=== PATIENT | female | born 1955 ===

== ENCOUNTER 2021-07-13 14:11 | Inpatient (IN) | payer MEDICARE, OTHER ==
[~2021-07-13] VITALS: Ht 167.6 cm; Wt 94.0 kg
[2021-07-13] MEDS ORDERED: SODIUM CHLORIDE 0.9% 1,000 ML IV ONE (14:30)
[2021-07-13] MEDS ORDERED: ZINC SULFATE 220mg CAP or TAB PO ONE (16:00)
[2021-07-13] MEDS ORDERED: methylPREDNISolone SOD SUCC 125 MG/2 ML VL IV ONE (16:00)
[2021-07-13] MEDS ORDERED: AZITHROMYCIN 500MG/ 250ML 250 ML IV ONE (16:00)
[2021-07-13 18:56] LABS: Basophils # (auto) 0 10 ^3/uL (0-0.2); Basophils % (auto) 0.2 % (0.0-2.0); Eosinophils # (auto) 0 10 ^3/uL (0-0.8); Hematocrit 45.2 % (36.0-46.0); Hemoglobin 14.6 g/dL (12.2-16.2); Lymphocytes # (auto) 1.2 10 ^3/uL (0.4-5.4); Lymphocytes % (auto) 5.7 % (10.0-50.0); Mean Corpuscular Hgb Conc. 32.3 g/dL (32.0-36.0); Mean Corpuscular Volume 89.8 fL (80.0-100.0); Monocytes # (auto) 2.5 10 ^3/uL (0-1.3); Monocytes % (auto) 11.5 % (0.0-12.0); Neutrophils # (auto) 18.2 10 ^3/uL (1.6-8.6); Neutrophils % (auto) 82.6 % (37.0-80.0); Nucleated Red Blood Cells % 0.3 %; Red Blood Cells 5.03 10^6/uL (4.0-5.20); Red Cell Distribution Width 14.9 % (11.8-14.3)
[2021-07-13 19:15] LABS: Albumin 2.3 g/dL (3.4-5.0); Anion Gap 11 (5-15); Calcium 10.8 mg/dL (8.5-10.1); Carbon Dioxide 22 mmol/L (21-32); Chloride 111 mmol/L (98-107); Glucose 144 mg/dL (74-106); Potassium 4.3 mmol/L (3.5-5.1); Sodium 144 mmol/L (136-145)
[2021-07-13 19:18] LABS: Lactic Acid w/Reflex 3.8 mmol/L (0.4-2.0)
[2021-07-13 19:23] LABS: Alanine Aminotransferase 16 U/L (13-56); Alkaline Phosphatase 91 U/L (45-117); Aspartate Aminotransferase 23 U/L (15-37); Bilirubin, Total 0.9 mg/dL (0.2-1.0); GFR African American 26 mL/min; GFR Non-African American 22 mL/min; Total Protein 8.2 g/dL (6.4-8.2)
[2021-07-13 19:43] LABS: CRP High Sensitivity > 19.0 mg/dL (< 0.3)
[2021-07-13 19:44] LABS: Blood Urea Nitrogen 120 mg/dL (7-18)
[2021-07-13] MEDS ORDERED: cefTRIAXone 1GM/50ML D5W 50 ML IV ONE (21:00)
[2021-07-13] MEDS ORDERED: MORPHINE SULFATE INJECTION 2 MG/ML SYRG IV PRN (21:00)
[2021-07-13] MEDS ORDERED: NITROGLYCERIN 0.4 MG SL TAB SL PRN (21:00)
[2021-07-13] MEDS ORDERED: ACETAMINOPHEN 325 MG TAB PO PRN (21:00)
[2021-07-13] MEDS ORDERED: ENOXAPARIN SOD 100 MG/1 ML SYRINGE SC ONE (21:00)
[2021-07-13] MEDS ORDERED: ONDANSETRON HCL 4 MG/2 ML VIAL IV PRN (21:00)
[2021-07-14 01:53] LABS: Urine Bacteria NONE SEEN /hpf (None Seen); Urine Blood Negative /uL (Negative); Urine Hyaline Cast MANY /lpf (0 - 2); Urine Mucus FEW (None Seen); Urine Specific Gravity 1.023 (1.001-1.035); Urine WBC 4 /hpf (0 - 5)
[2021-07-14] MEDS: ASCORBIC ACID 500 MG TAB PO SCH ×3 (02:06→21:47)
[2021-07-14] MEDS: levETIRAcetam 500 MG TAB PO SCH ×3 (02:07→21:47)
[2021-07-14] MEDS: SODIUM CHLORIDE 0.9% 1,000 ML IV SCH ×2 (02:20→10:20)
[2021-07-14 06:45] VITALS: BP 129/73
[2021-07-14] MEDS ORDERED: LEVE500T32 PO (07:20)
[2021-07-14] MEDS ORDERED: ASPirin 81 mg TAB PO SCH (10:00)
[2021-07-14] MEDS: cefTRIAXone 1GM/50ML D5W 50 ML IV SCH (10:35)
[2021-07-14] MEDS: ZINC SULFATE 220mg CAP or TAB PO SCH (10:35)
[2021-07-14] MEDS: ENOXAPARIN SOD 30 MG/0.3 ML SYRINGE SC SCH (10:36)
[2021-07-14] MEDS: MULTIPLE VITAMIN TAB PO SCH (10:36)
[2021-07-14 11:22] VITALS: BP 144/85
[2021-07-14] MEDS: AZITHROMYCIN 500MG/ 250ML 250 ML IV SCH (11:30)
[2021-07-14 12:18] LABS: Basophils # (auto) 0.1 10 ^3/uL (0-0.2); Basophils % (auto) 0.4 % (0.0-2.0); Eosinophils # (auto) 0 10 ^3/uL (0-0.8); Eosinophils % (auto) 0.1 % (0.0-7.0); Hematocrit 40.5 % (36.0-46.0); Hemoglobin 13.2 g/dL (12.2-16.2); Lymphocytes # (auto) 0.7 10 ^3/uL (0.4-5.4); Lymphocytes % (auto) 4.4 % (10.0-50.0); Mean Corpuscular Hgb Conc. 32.6 g/dL (32.0-36.0); Mean Corpuscular Volume 88.8 fL (80.0-100.0); Monocytes # (auto) 0.6 10 ^3/uL (0-1.3); Monocytes % (auto) 3.7 % (0.0-12.0); Neutrophils # (auto) 15.2 10 ^3/uL (1.6-8.6); Neutrophils % (auto) 91.4 % (37.0-80.0); Nucleated Red Blood Cells % 0.2 %; Red Blood Cells 4.56 10^6/uL (4.0-5.20); Red Cell Distribution Width 14.9 % (11.8-14.3); White Blood Cell 16.6 10^3/uL (4.4-10.8)
[2021-07-14 12:32] LABS: Albumin 2.1 g/dL (3.4-5.0); Calcium 10.3 mg/dL (8.5-10.1); Potassium 4.6 mmol/L (3.5-5.1)
[2021-07-14 12:45] LABS: BUN/Creatinine Ratio 54.5; Bilirubin, Total 0.9 mg/dL (0.2-1.0); Total Protein 7.4 g/dL (6.4-8.2)
[2021-07-14 14:00] VITALS: BP 118/81
[2021-07-14] MEDS ORDERED: REMDESIVIR PER PHARMACY 0 ML IV SCH (14:00)
[2021-07-14] MEDS ORDERED: IVERMECTIN 3 MG TAB PO ONE (15:00)
[2021-07-14] MEDS ORDERED: CHOLECALCIFEROL (VITD3) 2,000 UNIT CAP/TAB PO ONE (15:15)
[2021-07-14 17:00] VITALS: BP 140/93
[2021-07-14] MEDS ORDERED: REMDESIVIR 100mg 100 MG in SODIUM CHL 0.9% 230 ML IV ONE (17:00)
[2021-07-14] MEDS: BUDESONIDE (INHALATION) 180 MCG IH IN SCH (17:50)
[2021-07-14] MEDS: ALBUTEROL SULF HFA 90MCG INH 200DOSE IN PRN (17:50)
[2021-07-14 20:23] LABS: Creatinine, Urine 216 mg/dL (30.0-125.0); Protein, Urine 87.3 mg/dL (0.0-11.9); Sodium Urine < 5 mmol/L (40-220)
[2021-07-14 22:00] VITALS: BP 127/83
[2021-07-15] MEDS: SODIUM CHLORIDE 0.9% 1,000 ML IV SCH ×2 (02:32→13:00)
[2021-07-15 05:00] VITALS: BP 139/92
[2021-07-15] MEDS: ALBUTEROL SULF HFA 90MCG INH 200DOSE IN PRN ×2 (06:11→20:26)
[2021-07-15] MEDS: BUDESONIDE (INHALATION) 180 MCG IH IN SCH ×2 (06:11→20:26)
[2021-07-15 06:21] LABS: Basophils # (auto) 0 10 ^3/uL (0-0.2); Basophils % (auto) 0.1 % (0.0-2.0); Eosinophils # (auto) 0 10 ^3/uL (0-0.8); Hematocrit 39.6 % (36.0-46.0); Hemoglobin 12.4 g/dL (12.2-16.2); Lymphocytes # (auto) 0.8 10 ^3/uL (0.4-5.4); Lymphocytes % (auto) 4.5 % (10.0-50.0); Mean Corpuscular Hemoglobin 28.1 pg (28.0-32.0); Mean Corpuscular Hgb Conc. 31.4 g/dL (32.0-36.0); Mean Corpuscular Volume 89.6 fL (80.0-100.0); Monocytes # (auto) 1.5 10 ^3/uL (0-1.3); Monocytes % (auto) 7.9 % (0.0-12.0); Neutrophils # (auto) 16.4 10 ^3/uL (1.6-8.6); Neutrophils % (auto) 87.5 % (37.0-80.0); Nucleated Red Blood Cells % 0.3 %; Red Blood Cells 4.42 10^6/uL (4.0-5.20); White Blood Cell 18.7 10^3/uL (4.4-10.8)
[2021-07-15 06:55] LABS: INR 1.13 (0.9-1.15)
[2021-07-15 07:00] LABS: Bilirubin, Total 0.4 mg/dL (0.2-1.0); Magnesium 2.9 mg/dL (1.6-2.6); Phosphorus 4.5 mg/dL (2.5-4.90); Uric Acid 13.6 mg/dL (2.6-6.0)
[2021-07-15 07:10] LABS: Thyroid Stimulating Hormone 0.43 uIU/mL (0.358-3.74)
[2021-07-15 08:38] VITALS: BP 132/66
[2021-07-15] MEDS: cefTRIAXone 1GM/50ML D5W 50 ML IV SCH (09:41)
[2021-07-15] MEDS: AZITHROMYCIN 500MG/ 250ML 250 ML IV SCH (09:41)
[2021-07-15] MEDS: ASPirin 81 mg TAB PO SCH (09:42)
[2021-07-15] MEDS: levETIRAcetam 500 MG TAB PO SCH ×2 (09:44→22:06)
[2021-07-15] MEDS: IVERMECTIN 3 MG TAB PO SCH (09:44)
[2021-07-15] MEDS: ZINC SULFATE 220mg CAP or TAB PO SCH (09:44)
[2021-07-15] MEDS: MULTIPLE VITAMIN TAB PO SCH (09:44)
[2021-07-15] MEDS: CHOLECALCIFEROL (VITD3) 2,000 UNIT CAP/TAB PO SCH (09:45)
[2021-07-15] MEDS: ASCORBIC ACID 500 MG TAB PO SCH ×2 (09:45→22:05)
[2021-07-15] MEDS: ENOXAPARIN SOD 30 MG/0.3 ML SYRINGE SC SCH (09:46)
[2021-07-15 13:00] VITALS: BP 130/73
[2021-07-15] MEDS ORDERED: REMDESIVIR 100mg 50 MG in SODIUM CHL 0.9% 90 ML IV SCH (15:00)
[2021-07-15 16:38] VITALS: BP 132/77
[2021-07-15] MEDS ORDERED: ENOXAPARIN SOD 60 MG/0.6 ML SYRINGE SC ONE (19:09)
[2021-07-15 22:11] VITALS: BP 119/72
[2021-07-15] MEDS ORDERED: LORazepam 2MG/ML-1ML VIAL IV PRN (23:00)
[2021-07-16] MEDS: SODIUM CHLORIDE 0.9% 1,000 ML IV SCH ×2 (02:16→16:52)
[2021-07-16 04:35] VITALS: BP 128/78
[2021-07-16 06:39] LABS: Hematocrit 35.1 % (36.0-46.0); Hemoglobin 11.3 g/dL (12.2-16.2); Mean Corpuscular Hemoglobin 28.7 pg (28.0-32.0); Mean Corpuscular Hgb Conc. 32.1 g/dL (32.0-36.0); Mean Corpuscular Volume 89.2 fL (80.0-100.0); Red Blood Cells 3.93 10^6/uL (4.0-5.20); Red Cell Distribution Width 14.8 % (11.8-14.3); White Blood Cell 13.7 10^3/uL (4.4-10.8)
[2021-07-16 06:45] LABS: Basophils % (manual) 0 (0.0-2.0); Blast Cells 0; Eosinophils % (manual) 0 (0-7); Metamyelocytes % 0; Promyelocytes % 0; Reactive Lymphocytes 0
[2021-07-16 07:04] LABS: Potassium 3.9 mmol/L (3.5-5.1)
[2021-07-16 07:11] LABS: Albumin 1.8 g/dL (3.4-5.0); Bilirubin, Total 0.4 mg/dL (0.2-1.0); Calcium 9.2 mg/dL (8.5-10.1); Total Protein 6.3 g/dL (6.4-8.2)
[2021-07-16] MEDS: ASPirin 81 mg TAB PO SCH (08:48)
[2021-07-16] MEDS: MULTIPLE VITAMIN TAB PO SCH (08:48)
[2021-07-16] MEDS: ZINC SULFATE 220mg CAP or TAB PO SCH (08:48)
[2021-07-16] MEDS: cefTRIAXone 1GM/50ML D5W 50 ML IV SCH (08:48)
[2021-07-16] MEDS: AZITHROMYCIN 500MG/ 250ML 250 ML IV SCH (08:48)
[2021-07-16] MEDS: levETIRAcetam 500 MG TAB PO SCH ×2 (08:48→21:59)
[2021-07-16] MEDS: CHOLECALCIFEROL (VITD3) 2,000 UNIT CAP/TAB PO SCH (08:49)
[2021-07-16] MEDS: ASCORBIC ACID 500 MG TAB PO SCH ×2 (08:49→21:59)
[2021-07-16] MEDS: IVERMECTIN 3 MG TAB PO SCH (08:49)
[2021-07-16 09:00] VITALS: BP 127/71
[2021-07-16] MEDS ORDERED: ENOXAPARIN SOD 100 MG/1 ML SYRINGE SC SCH (10:00)
[2021-07-16] MEDS: ALBUTEROL SULF HFA 90MCG INH 200DOSE IN PRN ×2 (10:26→20:50)
[2021-07-16] MEDS: BUDESONIDE (INHALATION) 180 MCG IH IN SCH ×2 (10:26→20:49)
[2021-07-16 11:48] LABS: Band Neutrophils % (manual) 2; Lymphocytes % (manual) 9 (10.0-50.0); Monocytes % (manual) 10 (0-12); Myelocytes % 2
[2021-07-16 13:00] VITALS: BP 109/67
[2021-07-16] MEDS: REMDESIVIR 100mg 100 MG in SODIUM CHL 0.9% 230 ML IV SCH (16:52)
[2021-07-16 17:00] VITALS: BP_SYST 127; BP_SYST 96; BP_DIAS 61; BP_DIAS 73
[2021-07-16] MEDS: ENOXAPARIN SOD 100 MG/1 ML SYRINGE SC SCH (21:59)
[2021-07-16 22:00] VITALS: BP 127/75
[2021-07-17] MEDS: SODIUM CHLORIDE 0.9% 1,000 ML IV SCH (02:00)
[2021-07-17 05:00] VITALS: BP 118/84
[2021-07-17 07:26] LABS: Basophils # (auto) 0 10 ^3/uL (0-0.2); Basophils % (auto) 0.1 % (0.0-2.0); Eosinophils # (auto) 0.1 10 ^3/uL (0-0.8); Hematocrit 34.5 % (36.0-46.0); Hemoglobin 11.4 g/dL (12.2-16.2); Lymphocytes # (auto) 0.8 10 ^3/uL (0.4-5.4); Lymphocytes % (auto) 7.9 % (10.0-50.0); Mean Corpuscular Hemoglobin 29.2 pg (28.0-32.0); Mean Corpuscular Volume 88.7 fL (80.0-100.0); Monocytes % (auto) 9.1 % (0.0-12.0); Neutrophils # (auto) 8.7 10 ^3/uL (1.6-8.6); Neutrophils % (auto) 81.9 % (37.0-80.0); Nucleated Red Blood Cells % 0.1 %; Red Blood Cells 3.88 10^6/uL (4.0-5.20); Red Cell Distribution Width 14.8 % (11.8-14.3); White Blood Cell 10.6 10^3/uL (4.4-10.8)
[2021-07-17 07:45] LABS: Calcium 8.9 mg/dL (8.5-10.1); Magnesium 2.3 mg/dL (1.6-2.6); Potassium 3.8 mmol/L (3.5-5.1)
[2021-07-17 07:48] LABS: BUN/Creatinine Ratio 59.3
[2021-07-17 08:10] LABS: CRP High Sensitivity 9.28 mg/dL (< 0.3)
[2021-07-17 09:00] VITALS: BP 123/61
[2021-07-17] MEDS: BUDESONIDE (INHALATION) 180 MCG IH IN SCH ×2 (10:00→19:49)
[2021-07-17] MEDS: AZITHROMYCIN 500MG/ 250ML 250 ML IV SCH (10:32)
[2021-07-17] MEDS: ZINC SULFATE 220mg CAP or TAB PO SCH (10:32)
[2021-07-17] MEDS: cefTRIAXone 1GM/50ML D5W 50 ML IV SCH (10:32)
[2021-07-17] MEDS: levETIRAcetam 500 MG TAB PO SCH ×2 (10:32→21:30)
[2021-07-17] MEDS: ASPirin 81 mg TAB PO SCH (10:32)
[2021-07-17] MEDS: CHOLECALCIFEROL (VITD3) 2,000 UNIT CAP/TAB PO SCH (10:33)
[2021-07-17] MEDS: ASCORBIC ACID 500 MG TAB PO SCH ×2 (10:33→21:31)
[2021-07-17] MEDS: MULTIPLE VITAMIN TAB PO SCH (10:33)
[2021-07-17] MEDS: ENOXAPARIN SOD 100 MG/1 ML SYRINGE SC SCH ×2 (10:34→21:31)
[2021-07-17] MEDS: IVERMECTIN 3 MG TAB PO SCH (11:41)
[2021-07-17 13:00] VITALS: BP 120/74
[2021-07-17] MEDS: SOD CHL 0.45% 1,000 ML IV SCH ×2 (13:05→22:30)
[2021-07-17] MEDS ORDERED: IOHEXOL 300 MG/ML 100ML BOTTLE IJ ONE (13:56)
[2021-07-17] MEDS: ALBUTEROL SULF HFA 90MCG INH 200DOSE IN PRN (14:26)
[2021-07-17] MEDS: REMDESIVIR 100mg 100 MG in SODIUM CHL 0.9% 230 ML IV SCH (14:54)
[2021-07-17 17:22] VITALS: BP 122/80
[2021-07-17 22:00] VITALS: BP 134/90
[2021-07-18 05:17] VITALS: BP 129/78
[2021-07-18 06:48] LABS: Hematocrit 34.6 % (36.0-46.0); Hemoglobin 11.2 g/dL (12.2-16.2); Mean Corpuscular Hgb Conc. 32.5 g/dL (32.0-36.0); Mean Corpuscular Volume 89.3 fL (80.0-100.0); Red Blood Cells 3.87 10^6/uL (4.0-5.20); Red Cell Distribution Width 14.9 % (11.8-14.3); White Blood Cell 17.5 10^3/uL (4.4-10.8)
[2021-07-18 06:53] LABS: Basophils % (manual) 0 (0.0-2.0); Blast Cells 0; Eosinophils % (manual) 0 (0-7); Promyelocytes % 0; Reactive Lymphocytes 0
[2021-07-18 07:17] LABS: Calcium 8.8 mg/dL (8.5-10.1); Potassium 4.2 mmol/L (3.5-5.1)
[2021-07-18 07:21] LABS: BUN/Creatinine Ratio 53.7
[2021-07-18] MEDS: SOD CHL 0.45% 1,000 ML IV SCH ×2 (08:30→18:30)
[2021-07-18] MEDS: BUDESONIDE (INHALATION) 180 MCG IH IN SCH ×2 (08:39→19:58)
[2021-07-18] MEDS: ALBUTEROL SULF HFA 90MCG INH 200DOSE IN PRN ×2 (08:39→19:58)
[2021-07-18] MEDS: cefTRIAXone 1GM/50ML D5W 50 ML IV SCH (08:40)
[2021-07-18 09:00] VITALS: BP 102/58
[2021-07-18 09:28] LABS: Band Neutrophils % (manual) 4; Lymphocytes % (manual) 6 (10.0-50.0); Metamyelocytes % 1; Monocytes % (manual) 6 (0-12); Myelocytes % 2
[2021-07-18] MEDS: CHOLECALCIFEROL (VITD3) 2,000 UNIT CAP/TAB PO SCH (10:00)
[2021-07-18] MEDS: ZINC SULFATE 220mg CAP or TAB PO SCH (10:00)
[2021-07-18] MEDS: levETIRAcetam 500 MG TAB PO SCH ×2 (10:00→22:11)
[2021-07-18] MEDS: ASCORBIC ACID 500 MG TAB PO SCH ×2 (10:00→22:12)
[2021-07-18] MEDS: ASPirin 81 mg TAB PO SCH (10:00)
[2021-07-18] MEDS: IVERMECTIN 3 MG TAB PO SCH (10:00)
[2021-07-18] MEDS: MULTIPLE VITAMIN TAB PO SCH (10:00)
[2021-07-18] MEDS: ENOXAPARIN SOD 100 MG/1 ML SYRINGE SC SCH (11:03)
[2021-07-18] MEDS: AZITHROMYCIN 500MG/ 250ML 250 ML IV SCH (11:03)
[2021-07-18] MEDS ORDERED: HEPARIN SODIUM (PORCINE) 5000 UNITS/ML 1ML VIAL IV ONE (12:30)
[2021-07-18] MEDS ORDERED: FUROSEMIDE 20 MG/2 ML VIAL IV ONE (12:30)
[2021-07-18] MEDS ORDERED: DexAMETHasone SOD PHOS 10MG/1ML VIAL INJ IV ONE (12:45)
[2021-07-18] MEDS ORDERED: PPN PER PHARMACY 0 ML IV SCH (12:45)
[2021-07-18 13:00] VITALS: BP 140/85
[2021-07-18] MEDS ORDERED: IOHEXOL 350 MG/ML 100ML IJ ONE (13:07)
[2021-07-18 13:52] LABS: INR 1.21 (0.9-1.15); Partial Thromboplastin Time 40.2 sec (23.6-33.0)
[2021-07-18] MEDS: HEPARIN DRIP/D5W 100UNITS/ML 250 ML IV SCH (14:52)
[2021-07-18] MEDS: REMDESIVIR 100mg 100 MG in SODIUM CHL 0.9% 230 ML IV SCH (15:00)
[2021-07-18 15:03] LABS: Urine Bacteria NONE SEEN /hpf (None Seen); Urine Blood 3+ /uL (Negative); Urine Mucus FEW (None Seen); Urine Specific Gravity 1.021 (1.001-1.035); Urine WBC 240 /hpf (0 - 5); Urine WBC Clumps PRESENT /hpf (None Seen)
[2021-07-18] MEDS ORDERED: MIDAZOLAM HCL 2MG/2ML 2ml VIAL (1mg/ml) ONE (15:26)
[2021-07-18] MEDS ORDERED: LIDOCAINE 2%HCL (LOCAL ANESTH.) INJ 20ML MDV ONE (15:26)
[2021-07-18] MEDS ORDERED: fentaNYL CITRATE 100 MCG/2 ML VL ONE (15:26)
[2021-07-18] MEDS ORDERED: ANGIOMAX 250 MG VIAL IV ONE (15:26)
[2021-07-18] MEDS ORDERED: SODIUM CHL 0.9% 50 ML ONE (15:27)
[2021-07-18] MEDS ORDERED: IODIXANOL 320MG/ML 100ML BTL IV ONE ×2 (16:38→17:02)
[2021-07-18] MEDS: MEROPENEM 1GM IVPB 100 ML IV SCH ×2 (18:31→22:11)
[2021-07-18] MEDS ORDERED: AMINO ACID INFUSION IN D10W 1,000 ML IV NR (20:00)
[2021-07-18 22:13] VITALS: BP 91/75
[2021-07-19] MEDS ORDERED: DEXTROSE (50%) 50ML SYRG IV SCH
[2021-07-19] MEDS: ACCU-CHEK COMFORT CURVE STRIP VI SCH ×4 (00:50→17:32)
[2021-07-19] MEDS: InsuLIN REG 1unit/0.01ml Soln (100units/ml) SC SCH ×4 (00:53→17:33)
[2021-07-19 03:41] LABS: INR 1.29 (0.9-1.15)
[2021-07-19 03:45] LABS: Partial Thromboplastin Time 125.2 sec (23.6-33.0)
[2021-07-19] MEDS: HEPARIN DRIP/D5W 100UNITS/ML 250 ML IV SCH ×2 (04:08→22:07)
[2021-07-19] MEDS: SOD CHL 0.45% 1,000 ML IV SCH ×3 (04:16→22:30)
[2021-07-19 04:57] VITALS: BP 109/77
[2021-07-19] MEDS: MEROPENEM 1GM IVPB 100 ML IV SCH ×3 (05:31→22:23)
[2021-07-19] MEDS: BUDESONIDE (INHALATION) 180 MCG IH IN SCH ×2 (06:11→19:37)
[2021-07-19] MEDS: ALBUTEROL SULF HFA 90MCG INH 200DOSE IN PRN ×2 (06:11→19:37)
[2021-07-19 06:58] LABS: Basophils # (auto) 0.1 10 ^3/uL (0-0.2); Basophils % (auto) 0.3 % (0.0-2.0); Eosinophils # (auto) 0 10 ^3/uL (0-0.8); Hematocrit 29.3 % (36.0-46.0); Lymphocytes # (auto) 0.9 10 ^3/uL (0.4-5.4); Lymphocytes % (auto) 4.6 % (10.0-50.0); Mean Corpuscular Hemoglobin 28.2 pg (28.0-32.0); Mean Corpuscular Hgb Conc. 30.9 g/dL (32.0-36.0); Monocytes # (auto) 1.2 10 ^3/uL (0-1.3); Monocytes % (auto) 6.3 % (0.0-12.0); Neutrophils # (auto) 17.1 10 ^3/uL (1.6-8.6); Neutrophils % (auto) 88.8 % (37.0-80.0); Nucleated Red Blood Cells % 0.3 %; Red Blood Cells 3.21 10^6/uL (4.0-5.20); Red Cell Distribution Width 15.5 % (11.8-14.3); White Blood Cell 19.3 10^3/uL (4.4-10.8)
[2021-07-19 07:06] LABS: Potassium 4.5 mmol/L (3.5-5.1)
[2021-07-19 07:15] LABS: Albumin 1.6 g/dL (3.4-5.0); BUN/Creatinine Ratio 57.4; Bilirubin, Total 0.4 mg/dL (0.2-1.0); Calcium 8.5 mg/dL (8.5-10.1); Phosphorus 3.5 mg/dL (2.5-4.90); Pre Albumin 12.1 mg/dL (20.0-40.0); Total Protein 5.8 g/dL (6.4-8.2)
[2021-07-19 09:21] VITALS: BP 122/80
[2021-07-19] MEDS ORDERED: DexAMETHasone SOD PHOS 10MG/1ML VIAL INJ IV SCH (10:00)
[2021-07-19] MEDS: levETIRAcetam 500 MG TAB PO SCH ×2 (10:08→22:26)
[2021-07-19] MEDS: ZINC SULFATE 220mg CAP or TAB PO SCH (10:08)
[2021-07-19] MEDS: ASCORBIC ACID 500 MG TAB PO SCH ×2 (10:08→22:26)
[2021-07-19] MEDS: MULTIPLE VITAMIN TAB PO SCH (10:08)
[2021-07-19] MEDS: CHOLECALCIFEROL (VITD3) 2,000 UNIT CAP/TAB PO SCH (10:09)
[2021-07-19 13:00] VITALS: BP 122/75
[2021-07-19 14:39] LABS: INR 1.27 (0.9-1.15)
[2021-07-19 14:42] LABS: Partial Thromboplastin Time 91.4 sec (23.6-33.0)
[2021-07-19] MEDS ORDERED: PANTOPRAZOLE 40 MG/10 ML VIAL INJ IV ONE (15:00)
[2021-07-19 17:22] VITALS: BP 122/76
[2021-07-19] MEDS ORDERED: PPN PER PHARMACY IV NR ×8 (20:00)
[2021-07-19 21:56] VITALS: BP 125/75
[2021-07-19] MEDS: PANTOPRAZOLE 40 MG/10 ML VIAL INJ IV SCH (22:26)
[2021-07-19 23:17] LABS: INR 1.2 (0.9-1.15); Partial Thromboplastin Time 47.3 sec (23.6-33.0)
[2021-07-20] MEDS: ACCU-CHEK COMFORT CURVE STRIP VI SCH ×5 (00:13→23:42)
[2021-07-20] MEDS: InsuLIN REG 1unit/0.01ml Soln (100units/ml) SC SCH ×5 (00:15→23:45)
[2021-07-20 04:59] VITALS: BP 117/67
[2021-07-20] MEDS ORDERED: HYDROcodone-ACET 5/325MG TAB PO PRN (05:15)
[2021-07-20 05:18] LABS: Hemoglobin 7.5 g/dL (12.2-16.2); Red Cell Distribution Width 14.9 % (11.8-14.3)
[2021-07-20 05:20] LABS: Hematocrit 22.7 % (36.0-46.0); Mean Corpuscular Hemoglobin 28.9 pg (28.0-32.0); Mean Corpuscular Hgb Conc. 32.8 g/dL (32.0-36.0); Mean Corpuscular Volume 87.9 fL (80.0-100.0); Red Blood Cells 2.59 10^6/uL (4.0-5.20); White Blood Cell 19.7 10^3/uL (4.4-10.8)
[2021-07-20 05:21] LABS: Basophils % (manual) 0 (0.0-2.0); Blast Cells 0; Eosinophils % (manual) 0 (0-7); Promyelocytes % 0; Reactive Lymphocytes 0
[2021-07-20 05:34] LABS: Band Neutrophils % (manual) 2; Lymphocytes % (manual) 3 (10.0-50.0); Metamyelocytes % 1; Monocytes % (manual) 3 (0-12); Myelocytes % 1
[2021-07-20 05:39] LABS: Albumin 1.7 g/dL (3.4-5.0); Calcium 8.6 mg/dL (8.5-10.1); Magnesium 2.6 mg/dL (1.6-2.6); Potassium 3.4 mmol/L (3.5-5.1)
[2021-07-20 05:40] LABS: INR 1.2 (0.9-1.15); Partial Thromboplastin Time 62.4 sec (23.6-33.0)
[2021-07-20 05:43] LABS: BUN/Creatinine Ratio 63.7; Bilirubin, Total 0.4 mg/dL (0.2-1.0); Phosphorus 2.4 mg/dL (2.5-4.90); Total Protein 5.3 g/dL (6.4-8.2)
[2021-07-20] MEDS: ALBUTEROL SULF HFA 90MCG INH 200DOSE IN PRN ×2 (05:44→18:35)
[2021-07-20] MEDS: BUDESONIDE (INHALATION) 180 MCG IH IN SCH ×2 (05:44→18:35)
[2021-07-20] MEDS: MEROPENEM 1GM IVPB 100 ML IV SCH ×3 (06:06→23:23)
[2021-07-20 08:00] VITALS: BP_SYST 121; BP_SYST 140; BP_DIAS 62; BP_DIAS 85
[2021-07-20] MEDS: SOD CHL 0.45% 1,000 ML IV SCH ×2 (08:30→23:42)
[2021-07-20] MEDS: DexAMETHasone SOD PHOS 10MG/1ML VIAL INJ IV SCH (09:11)
[2021-07-20] MEDS: ZINC SULFATE 220mg CAP or TAB PO SCH (09:11)
[2021-07-20] MEDS: PANTOPRAZOLE 40 MG/10 ML VIAL INJ IV SCH ×2 (09:11→23:22)
[2021-07-20] MEDS: levETIRAcetam 500 MG TAB PO SCH ×2 (09:12→23:22)
[2021-07-20] MEDS: ASCORBIC ACID 500 MG TAB PO SCH ×2 (09:12→23:22)
[2021-07-20] MEDS: MULTIPLE VITAMIN TAB PO SCH (09:12)
[2021-07-20] MEDS: CHOLECALCIFEROL (VITD3) 2,000 UNIT CAP/TAB PO SCH (09:12)
[2021-07-20] MEDS ORDERED: POTASSIUM CHL 10MEQ/50ML 50 ML IV ONE (11:00)
[2021-07-20 12:00] VITALS: BP 106/68
[2021-07-20 12:21] LABS: INR 1.16 (0.9-1.15)
[2021-07-20 16:00] VITALS: BP 126/64
[2021-07-20 17:44] LABS: INR 1.1 (0.9-1.15); Partial Thromboplastin Time 40.8 sec (23.6-33.0)
[2021-07-20 19:50] VITALS: BP 140/85
[2021-07-20] MEDS ORDERED: PPN PER PHARMACY IV NR ×7 (20:00)
[2021-07-21 00:20] LABS: INR 1.11 (0.9-1.15); Partial Thromboplastin Time 65.7 sec (23.6-33.0)
[2021-07-21] MEDS ORDERED: SOD CHL 0.45% 1,000 ML IV SCH (00:45)
[2021-07-21 05:00] VITALS: BP 131/71
[2021-07-21] MEDS: InsuLIN REG 1unit/0.01ml Soln (100units/ml) SC SCH ×4 (06:00→23:35)
[2021-07-21 06:41] LABS: INR 1.1 (0.9-1.15)
[2021-07-21 06:42] LABS: Albumin 1.7 g/dL (3.4-5.0); BUN/Creatinine Ratio 58.4; Calcium 8.7 mg/dL (8.5-10.1); Magnesium 1.9 mg/dL (1.6-2.6); Potassium 3.8 mmol/L (3.5-5.1)
[2021-07-21 06:45] LABS: Bilirubin, Total 0.5 mg/dL (0.2-1.0); Phosphorus 2.6 mg/dL (2.5-4.90); Total Protein 5.5 g/dL (6.4-8.2)
[2021-07-21] MEDS: ACCU-CHEK COMFORT CURVE STRIP VI SCH ×4 (06:46→23:33)
[2021-07-21] MEDS: MEROPENEM 1GM IVPB 100 ML IV SCH ×3 (06:53→22:01)
[2021-07-21 07:10] LABS: Partial Thromboplastin Time 75.3 sec (23.6-33.0)
[2021-07-21] MEDS ORDERED: HEPARIN DRIP/D5W 100UNITS/ML 250 ML IV SCH ×2 (07:30→16:15)
[2021-07-21] MEDS: ALBUTEROL SULF HFA 90MCG INH 200DOSE IN PRN ×2 (08:26→20:03)
[2021-07-21] MEDS: BUDESONIDE (INHALATION) 180 MCG IH IN SCH ×2 (08:27→20:04)
[2021-07-21 09:00] VITALS: BP 138/83
[2021-07-21] MEDS: MULTIPLE VITAMIN TAB PO SCH (10:09)
[2021-07-21] MEDS: PANTOPRAZOLE 40 MG/10 ML VIAL INJ IV SCH (10:09)
[2021-07-21] MEDS: ZINC SULFATE 220mg CAP or TAB PO SCH (10:09)
[2021-07-21] MEDS: levETIRAcetam 500 MG TAB PO SCH ×2 (10:09→20:58)
[2021-07-21] MEDS: DexAMETHasone SOD PHOS 10MG/1ML VIAL INJ IV SCH (10:09)
[2021-07-21] MEDS: CHOLECALCIFEROL (VITD3) 2,000 UNIT CAP/TAB PO SCH (10:10)
[2021-07-21] MEDS: ASCORBIC ACID 500 MG TAB PO SCH ×2 (10:10→20:58)
[2021-07-21] MEDS ORDERED: PANTOPRAZOLE 40 MG/10 ML VIAL INJ IV ONE (11:00)
[2021-07-21 11:14] LABS: Basophils # (auto) 0.1 10 ^3/uL (0-0.2); Eosinophils # (auto) 0 10 ^3/uL (0-0.8); Hemoglobin 8.1 g/dL (12.2-16.2); Lymphocytes # (auto) 0.8 10 ^3/uL (0.4-5.4); Mean Corpuscular Hemoglobin 29.3 pg (28.0-32.0); Nucleated Red Blood Cells % 0.1 %
[2021-07-21 11:16] LABS: Basophils % (auto) 0.3 % (0.0-2.0); Eosinophils % (auto) 0.1 % (0.0-7.0); Hematocrit 24.7 % (36.0-46.0); Lymphocytes % (auto) 3.9 % (10.0-50.0); Mean Corpuscular Hgb Conc. 32.7 g/dL (32.0-36.0); Mean Corpuscular Volume 89.4 fL (80.0-100.0); Monocytes % (auto) 4.8 % (0.0-12.0); Neutrophils # (auto) 18.6 10 ^3/uL (1.6-8.6); Neutrophils % (auto) 90.9 % (37.0-80.0); Red Blood Cells 2.76 10^6/uL (4.0-5.20); Red Cell Distribution Width 15.4 % (11.8-14.3); White Blood Cell 20.4 10^3/uL (4.4-10.8)
[2021-07-21 11:30] LABS: BUN/Creatinine Ratio 55.3; Calcium 8.7 mg/dL (8.5-10.1); Potassium 3.7 mmol/L (3.5-5.1)
[2021-07-21] MEDS: PANTOPRAZOLE 40mg/50ML NS AE 50 ML IV SCH ×3 (12:14→20:57)
[2021-07-21 13:00] VITALS: BP 143/90
[2021-07-21 13:52] LABS: INR 1.1 (0.9-1.15)
[2021-07-21] MEDS ORDERED: FUROSEMIDE 20 MG/2 ML VIAL IV ONE (14:30)
[2021-07-21 15:49] LABS: Partial Thromboplastin Time 85.1 sec (23.6-33.0)
[2021-07-21 17:00] VITALS: BP 133/73
[2021-07-21] MEDS ORDERED: PPN PER PHARMACY IV NR ×7 (20:00)
[2021-07-21 22:00] VITALS: BP 118/64
[2021-07-21 22:32] LABS: INR 1.09 (0.9-1.15); Partial Thromboplastin Time 50.4 sec (23.6-33.0)
[2021-07-22] MEDS: PANTOPRAZOLE 40mg/50ML NS AE 50 ML IV SCH ×5 (02:19→22:08)
[2021-07-22 05:00] VITALS: BP 130/78
[2021-07-22] MEDS: InsuLIN REG 1unit/0.01ml Soln (100units/ml) SC SCH ×3 (05:17→17:32)
[2021-07-22] MEDS: ACCU-CHEK COMFORT CURVE STRIP VI SCH ×3 (05:17→17:31)
[2021-07-22] MEDS: MEROPENEM 1GM IVPB 100 ML IV SCH ×3 (05:23→22:08)
[2021-07-22 06:02] LABS: Basophils # (auto) 0 10 ^3/uL (0-0.2); Basophils % (auto) 0.1 % (0.0-2.0); Eosinophils # (auto) 0 10 ^3/uL (0-0.8); Eosinophils % (auto) 0.1 % (0.0-7.0); Hematocrit 22.9 % (36.0-46.0); Hemoglobin 7.6 g/dL (12.2-16.2); Lymphocytes # (auto) 0.7 10 ^3/uL (0.4-5.4); Lymphocytes % (auto) 3.7 % (10.0-50.0); Mean Corpuscular Hemoglobin 29.5 pg (28.0-32.0); Mean Corpuscular Hgb Conc. 33.4 g/dL (32.0-36.0); Mean Corpuscular Volume 88.4 fL (80.0-100.0); Monocytes # (auto) 0.8 10 ^3/uL (0-1.3); Monocytes % (auto) 4.3 % (0.0-12.0); Neutrophils % (auto) 91.8 % (37.0-80.0); Nucleated Red Blood Cells % 0.1 %; Red Blood Cells 2.59 10^6/uL (4.0-5.20); Red Cell Distribution Width 15.1 % (11.8-14.3); White Blood Cell 19.6 10^3/uL (4.4-10.8)
[2021-07-22 06:05] LABS: INR 1.1 (0.9-1.15); Partial Thromboplastin Time 51.2 sec (23.6-33.0)
[2021-07-22 06:06] LABS: Albumin 1.8 g/dL (3.4-5.0); Calcium 8.7 mg/dL (8.5-10.1); Magnesium 2.6 mg/dL (1.6-2.6); Potassium 3.9 mmol/L (3.5-5.1)
[2021-07-22 06:11] LABS: BUN/Creatinine Ratio 60.5; Bilirubin, Total 0.4 mg/dL (0.2-1.0); Phosphorus 2.8 mg/dL (2.5-4.90); Total Protein 5.9 g/dL (6.4-8.2)
[2021-07-22] MEDS: BUDESONIDE (INHALATION) 180 MCG IH IN SCH ×2 (07:26→21:52)
[2021-07-22] MEDS: ALBUTEROL SULF HFA 90MCG INH 200DOSE IN PRN ×2 (07:26→21:52)
[2021-07-22 08:39] VITALS: BP 143/82
[2021-07-22] MEDS: ZINC SULFATE 220mg CAP or TAB PO SCH (09:13)
[2021-07-22] MEDS: DexAMETHasone SOD PHOS 10MG/1ML VIAL INJ IV SCH (09:13)
[2021-07-22] MEDS: ASCORBIC ACID 500 MG TAB PO SCH ×2 (09:14→22:08)
[2021-07-22] MEDS: CHOLECALCIFEROL (VITD3) 2,000 UNIT CAP/TAB PO SCH (09:14)
[2021-07-22] MEDS: MULTIPLE VITAMIN TAB PO SCH (09:14)
[2021-07-22] MEDS: levETIRAcetam 500 MG TAB PO SCH ×2 (09:14→22:07)
[2021-07-22 13:00] VITALS: BP 139/83
[2021-07-22 14:44] LABS: INR 1.08 (0.9-1.15); Partial Thromboplastin Time 47.9 sec (23.6-33.0)
[2021-07-22] MEDS: HEPARIN DRIP/D5W 100UNITS/ML 250 ML IV SCH ×2 (15:17→22:55)
[2021-07-22 17:00] VITALS: BP 134/80
[2021-07-22] MEDS: SUCRALFATE 1 GM/10 ML ORAL SUSP PO SCH ×2 (17:30→22:07)
[2021-07-22] MEDS ORDERED: PPN PER PHARMACY IV NR ×6 (20:00)
[2021-07-22 22:08] VITALS: BP 140/86
[2021-07-22 22:11] LABS: INR 1.06 (0.9-1.15); Partial Thromboplastin Time 55.4 sec (23.6-33.0)
[2021-07-23] MEDS: InsuLIN REG 1unit/0.01ml Soln (100units/ml) SC SCH ×4 (00:45→17:53)
[2021-07-23] MEDS: ACCU-CHEK COMFORT CURVE STRIP VI SCH ×4 (00:46→17:51)
[2021-07-23] MEDS: PANTOPRAZOLE 40mg/50ML NS AE 50 ML IV SCH ×5 (02:34→23:12)
[2021-07-23 03:06] LABS: Albumin 1.7 g/dL (3.4-5.0); BUN/Creatinine Ratio 69.4; Calcium 8.5 mg/dL (8.5-10.1); Potassium 3.9 mmol/L (3.5-5.1)
[2021-07-23 03:08] LABS: Bilirubin, Total 0.4 mg/dL (0.2-1.0); Phosphorus 2.7 mg/dL (2.5-4.90); Total Protein 5.6 g/dL (6.4-8.2)
[2021-07-23 03:09] LABS: Hematocrit 23.2 % (36.0-46.0); Hemoglobin 7.3 g/dL (12.2-16.2); Mean Corpuscular Hemoglobin 28.6 pg (28.0-32.0); Mean Corpuscular Hgb Conc. 31.6 g/dL (32.0-36.0); Mean Corpuscular Volume 90.5 fL (80.0-100.0); Red Blood Cells 2.57 10^6/uL (4.0-5.20); Red Cell Distribution Width 15.4 % (11.8-14.3); White Blood Cell 17.9 10^3/uL (4.4-10.8)
[2021-07-23 03:12] LABS: Basophils % (manual) 0 (0.0-2.0); Blast Cells 0; Metamyelocytes % 0; Promyelocytes % 0; Reactive Lymphocytes 0
[2021-07-23 03:24] LABS: INR 1.1 (0.9-1.15); Partial Thromboplastin Time 68.6 sec (23.6-33.0)
[2021-07-23 05:00] VITALS: BP 146/86
[2021-07-23 05:16] LABS: Band Neutrophils % (manual) 4; Eosinophils % (manual) 1 (0-7); Lymphocytes % (manual) 8 (10.0-50.0); Monocytes % (manual) 4 (0-12); Myelocytes % 1
[2021-07-23] MEDS: SUCRALFATE 1 GM/10 ML ORAL SUSP PO SCH ×4 (06:11→23:11)
[2021-07-23] MEDS: MEROPENEM 1GM IVPB 100 ML IV SCH ×3 (06:12→23:13)
[2021-07-23 06:52] LABS: INR 1.08 (0.9-1.15)
[2021-07-23] MEDS: BUDESONIDE (INHALATION) 180 MCG IH IN SCH ×2 (06:58→21:47)
[2021-07-23] MEDS: ALBUTEROL SULF HFA 90MCG INH 200DOSE IN PRN ×3 (06:58→22:43)
[2021-07-23] MEDS: MULTIPLE VITAMIN TAB PO SCH (08:30)
[2021-07-23] MEDS: ASCORBIC ACID 500 MG TAB PO SCH ×2 (08:30→23:12)
[2021-07-23] MEDS: ZINC SULFATE 220mg CAP or TAB PO SCH (08:30)
[2021-07-23] MEDS: levETIRAcetam 500 MG TAB PO SCH ×2 (08:30→23:11)
[2021-07-23] MEDS: CHOLECALCIFEROL (VITD3) 2,000 UNIT CAP/TAB PO SCH (08:31)
[2021-07-23 09:00] VITALS: BP 141/76
[2021-07-23] MEDS ORDERED: DexAMETHasone SOD PHOS 10MG/1ML VIAL INJ IV SCH (10:00)
[2021-07-23 10:54] LABS: INR 1.07 (0.9-1.15); Partial Thromboplastin Time 41.3 sec (23.6-33.0)
[2021-07-23] MEDS: HEPARIN DRIP/D5W 100UNITS/ML 250 ML IV SCH (11:08)
[2021-07-23 12:50] VITALS: BP_SYST 120; BP_SYST 143; BP_DIAS 65; BP_DIAS 82
[2021-07-23] MEDS ORDERED: FUROSEMIDE 40 MG/4 ML VIAL IV ONE (13:30)
[2021-07-23 17:23] VITALS: BP 137/73
[2021-07-23] MEDS ORDERED: PPN PER PHARMACY IV NR ×7 (20:00)
[2021-07-23 22:00] VITALS: BP 148/77
[2021-07-23 23:54] LABS: INR 1.09 (0.9-1.15)
[2021-07-24] MEDS: ACCU-CHEK COMFORT CURVE STRIP VI SCH ×4 (00:12→18:00)
[2021-07-24 00:23] LABS: Partial Thromboplastin Time 94.7 sec (23.6-33.0)
[2021-07-24] MEDS: PANTOPRAZOLE 40mg/50ML NS AE 50 ML IV SCH ×2 (04:45→10:16)
[2021-07-24 05:00] VITALS: BP 142/65
[2021-07-24] MEDS: InsuLIN REG 1unit/0.01ml Soln (100units/ml) SC SCH ×4 (06:00→18:00)
[2021-07-24] MEDS: MEROPENEM 1GM IVPB 100 ML IV SCH ×3 (06:09→22:09)
[2021-07-24] MEDS: SUCRALFATE 1 GM/10 ML ORAL SUSP PO SCH ×4 (06:30→22:09)
[2021-07-24 06:45] LABS: Basophils # (auto) 0 10 ^3/uL (0-0.2); Eosinophils # (auto) 0.1 10 ^3/uL (0-0.8); Lymphocytes # (auto) 0.7 10 ^3/uL (0.4-5.4)
[2021-07-24 06:47] LABS: Basophils % (auto) 0.1 % (0.0-2.0); Eosinophils % (auto) 0.7 % (0.0-7.0); Hematocrit 23.1 % (36.0-46.0); Hemoglobin 7.5 g/dL (12.2-16.2); Lymphocytes % (auto) 4.2 % (10.0-50.0); Mean Corpuscular Hemoglobin 29.4 pg (28.0-32.0); Mean Corpuscular Hgb Conc. 32.5 g/dL (32.0-36.0); Mean Corpuscular Volume 90.7 fL (80.0-100.0); Monocytes # (auto) 0.8 10 ^3/uL (0-1.3); Monocytes % (auto) 4.3 % (0.0-12.0); Neutrophils # (auto) 16.2 10 ^3/uL (1.6-8.6); Neutrophils % (auto) 90.7 % (37.0-80.0); Nucleated Red Blood Cells % 0.2 %; Red Blood Cells 2.54 10^6/uL (4.0-5.20); Red Cell Distribution Width 15.9 % (11.8-14.3); White Blood Cell 17.8 10^3/uL (4.4-10.8)
[2021-07-24 07:28] LABS: Potassium 4.1 mmol/L (3.5-5.1)
[2021-07-24 07:36] LABS: Albumin 1.6 g/dL (3.4-5.0); BUN/Creatinine Ratio 65.2; Calcium 8.8 mg/dL (8.5-10.1)
[2021-07-24 07:40] LABS: Bilirubin, Total 0.5 mg/dL (0.2-1.0); Phosphorus 2.4 mg/dL (2.5-4.90); Total Protein 5.5 g/dL (6.4-8.2)
[2021-07-24] MEDS ORDERED: SODIUM PHOSPHATES 20 MEQ in SODIUM CHL 0.9% 100 ML IV ONE (08:15)
[2021-07-24] MEDS ORDERED: MIDAZOLAM HCL 2MG/2ML 2ml VIAL (1mg/ml) ONE (08:18)
[2021-07-24] MEDS ORDERED: fentaNYL CITRATE 0 ML ONE (08:18)
[2021-07-24] MEDS ORDERED: LIDOCAINE 2%HCL (LOCAL ANESTH.) INJ 20ML MDV ONE (08:19)
[2021-07-24] MEDS ORDERED: IOHEXOL 350 MG/ML 100ML IJ ONE (08:20)
[2021-07-24] MEDS: ALBUTEROL SULF HFA 90MCG INH 200DOSE IN PRN (08:41)
[2021-07-24] MEDS: BUDESONIDE (INHALATION) 180 MCG IH IN SCH ×2 (08:41→20:25)
[2021-07-24] MEDS ORDERED: DexAMETHasone SOD PHOS 4 MG/1ML SDV INJ IV SCH (10:00)
[2021-07-24] MEDS: ZINC SULFATE 220mg CAP or TAB PO SCH (10:09)
[2021-07-24] MEDS: ASCORBIC ACID 500 MG TAB PO SCH ×2 (10:09→22:09)
[2021-07-24] MEDS: levETIRAcetam 500 MG TAB PO SCH ×2 (10:09→22:10)
[2021-07-24] MEDS: MULTIPLE VITAMIN TAB PO SCH (10:09)
[2021-07-24] MEDS: CHOLECALCIFEROL (VITD3) 2,000 UNIT CAP/TAB PO SCH (10:10)
[2021-07-24 11:01] LABS: INR 1.12 (0.9-1.15); Partial Thromboplastin Time 57.1 sec (23.6-33.0)
[2021-07-24] MEDS ORDERED: FUROSEMIDE 40 MG/4 ML VIAL IV ONE (12:15)
[2021-07-24] MEDS: HEPARIN DRIP/D5W 100UNITS/ML 250 ML IV SCH ×2 (12:43→23:21)
[2021-07-24 13:00] VITALS: BP 141/96
[2021-07-24 17:00] VITALS: BP 131/79
[2021-07-24] MEDS ORDERED: MORPHINE SULFATE INJECTION 2 MG/ML SYRG IM ONE (19:45)
[2021-07-24] MEDS ORDERED: MORPHINE SULFATE INJECTION 2 MG/ML SYRG IV ONE (20:00)
[2021-07-24] MEDS ORDERED: PPN PER PHARMACY IV NR ×7 (20:00)
[2021-07-24 22:00] VITALS: BP 156/82
[2021-07-24] MEDS: PANTOPRAZOLE 40 MG/10 ML VIAL INJ IV SCH (22:10)
[2021-07-24 22:24] LABS: INR 1.1 (0.9-1.15); Partial Thromboplastin Time 39.4 sec (23.6-33.0)
[2021-07-25] MEDS: InsuLIN REG 1unit/0.01ml Soln (100units/ml) SC SCH ×4 (01:02→18:15)
[2021-07-25 05:00] VITALS: BP 131/71
[2021-07-25] MEDS: ACCU-CHEK COMFORT CURVE STRIP VI SCH ×4 (05:46→18:15)
[2021-07-25] MEDS: MEROPENEM 1GM IVPB 100 ML IV SCH ×3 (06:12→22:50)
[2021-07-25 06:56] LABS: Hematocrit 22.5 % (36.0-46.0); Hemoglobin 7.3 g/dL (12.2-16.2); Mean Corpuscular Hemoglobin 29.7 pg (28.0-32.0); Mean Corpuscular Hgb Conc. 32.3 g/dL (32.0-36.0); Mean Corpuscular Volume 91.8 fL (80.0-100.0); Red Blood Cells 2.45 10^6/uL (4.0-5.20); Red Cell Distribution Width 16.7 % (11.8-14.3)
[2021-07-25 07:02] LABS: INR 1.12 (0.9-1.15); Partial Thromboplastin Time 52.2 sec (23.6-33.0)
[2021-07-25 07:16] LABS: Basophils % (manual) 0 (0.0-2.0); Blast Cells 0; Eosinophils % (manual) 0 (0-7); Metamyelocytes % 0; Myelocytes % 0; Promyelocytes % 0; Reactive Lymphocytes 0
[2021-07-25 07:17] LABS: Albumin 1.5 g/dL (3.4-5.0); Calcium 8.9 mg/dL (8.5-10.1); Magnesium 2.8 mg/dL (1.6-2.6); Potassium 3.6 mmol/L (3.5-5.1)
[2021-07-25 07:21] LABS: Bilirubin, Total 0.4 mg/dL (0.2-1.0); Phosphorus 3.5 mg/dL (2.5-4.90); Pre Albumin 12.4 mg/dL (20.0-40.0); Total Protein 5.9 g/dL (6.4-8.2)
[2021-07-25] MEDS: SUCRALFATE 1 GM/10 ML ORAL SUSP PO SCH ×4 (07:21→22:50)
[2021-07-25 08:07] LABS: Band Neutrophils % (manual) 1; Lymphocytes % (manual) 9 (10.0-50.0); Monocytes % (manual) 3 (0-12)
[2021-07-25 08:59] VITALS: BP 126/78
[2021-07-25] MEDS: DexAMETHasone SOD PHOS 4 MG/1ML SDV INJ IV SCH (09:54)
[2021-07-25] MEDS: ZINC SULFATE 220mg CAP or TAB PO SCH (09:55)
[2021-07-25] MEDS: levETIRAcetam 500 MG TAB PO SCH ×2 (09:55→22:51)
[2021-07-25] MEDS: PANTOPRAZOLE 40 MG/10 ML VIAL INJ IV SCH ×2 (09:55→22:50)
[2021-07-25] MEDS: CHOLECALCIFEROL (VITD3) 2,000 UNIT CAP/TAB PO SCH (09:55)
[2021-07-25] MEDS: MULTIPLE VITAMIN TAB PO SCH (09:55)
[2021-07-25] MEDS: ASCORBIC ACID 500 MG TAB PO SCH ×2 (09:55→22:51)
[2021-07-25] MEDS ORDERED: IOHEXOL 350 MG/ML 100ML IJ ONE (12:12)
[2021-07-25 12:30] VITALS: BP 140/86
[2021-07-25] MEDS ORDERED: LORazepam 2MG/ML-1ML VIAL IV PRN (14:30)
[2021-07-25] MEDS: BUDESONIDE (INHALATION) 180 MCG IH IN SCH ×2 (15:46→18:39)
[2021-07-25 16:28] LABS: INR 1.16 (0.9-1.15)
[2021-07-25 16:35] LABS: Partial Thromboplastin Time 95.6 sec (23.6-33.0)
[2021-07-25 16:59] VITALS: BP 139/78
[2021-07-25] MEDS: HEPARIN DRIP/D5W 100UNITS/ML 250 ML IV SCH (18:08)
[2021-07-25] MEDS: ALBUTEROL SULF HFA 90MCG INH 200DOSE IN PRN (19:02)
[2021-07-25] MEDS ORDERED: PPN PER PHARMACY IV NR ×7 (20:00)
[2021-07-25 22:00] VITALS: BP 140/86
[2021-07-26] MEDS: InsuLIN REG 1unit/0.01ml Soln (100units/ml) SC SCH ×3 (00:59→11:41)
[2021-07-26 01:43] LABS: INR 1.12 (0.9-1.15); Partial Thromboplastin Time 37.9 sec (23.6-33.0)
[2021-07-26] MEDS: HEPARIN DRIP/D5W 100UNITS/ML 250 ML IV SCH (02:13)
[2021-07-26 05:00] VITALS: BP 145/88
[2021-07-26] MEDS: MEROPENEM 1GM IVPB 100 ML IV SCH ×2 (05:22→14:00)
[2021-07-26] MEDS: ACCU-CHEK COMFORT CURVE STRIP VI SCH ×3 (05:41→11:39)
[2021-07-26 06:41] LABS: Albumin 1.4 g/dL (3.4-5.0); Calcium 9.6 mg/dL (8.5-10.1); Potassium 3.9 mmol/L (3.5-5.1)
[2021-07-26] MEDS: SUCRALFATE 1 GM/10 ML ORAL SUSP PO SCH ×2 (06:45→11:39)
[2021-07-26 06:55] LABS: BUN/Creatinine Ratio 73.2
[2021-07-26 06:56] LABS: Bilirubin, Total 0.4 mg/dL (0.2-1.0); Phosphorus 2.7 mg/dL (2.5-4.90); Total Protein 6.1 g/dL (6.4-8.2)
[2021-07-26 09:00] VITALS: BP 154/98
[2021-07-26] MEDS: DexAMETHasone SOD PHOS 4 MG/1ML SDV INJ IV SCH (09:23)
[2021-07-26] MEDS: ASCORBIC ACID 500 MG TAB PO SCH (09:24)
[2021-07-26] MEDS: CHOLECALCIFEROL (VITD3) 2,000 UNIT CAP/TAB PO SCH (09:24)
[2021-07-26] MEDS: PANTOPRAZOLE 40 MG/10 ML VIAL INJ IV SCH (09:24)
[2021-07-26] MEDS: levETIRAcetam 500 MG TAB PO SCH (09:24)
[2021-07-26] MEDS: MULTIPLE VITAMIN TAB PO SCH (09:24)
[2021-07-26] MEDS: ZINC SULFATE 220mg CAP or TAB PO SCH (09:24)
[2021-07-26] MEDS: BUDESONIDE (INHALATION) 180 MCG IH IN SCH (10:00)
[2021-07-26 10:17] VITALS: BP 141/96
[2021-07-26 12:47] LABS: INR 1.12 (0.9-1.15); Partial Thromboplastin Time 60.1 sec (23.6-33.0)
[2021-07-26 13:00] VITALS: BP 160/86
[2021-07-26] MEDS ORDERED: INSREGI SC (15:22)
[2021-07-26] MEDS ORDERED: ACET325T10 PO (15:22)
[2021-07-26] MEDS ORDERED: MULTTAB99 PO (15:22)
[2021-07-26] MEDS ORDERED: ALBUAER3 IN (15:22)
[2021-07-26] MEDS ORDERED: KEP500T PO (15:22)
[2021-07-26] MEDS ORDERED: ASCO500T11 PO (15:22)
[2021-07-26] MEDS ORDERED: CHOL1CAP47 PO (15:22)
[2021-07-26] MEDS ORDERED: SUCR1SUS10 PO (15:23)
[2021-07-26] MEDS ORDERED: PANT40TA2 PO (15:23)
[2021-07-26] MEDS ORDERED: APIX5TAB PO (15:23)
[2021-07-26] MEDS ORDERED: POTA10TA51 PO (15:23)
[2021-07-26] MEDS ORDERED: LACT10SO3 PO (15:26)
[2021-07-26] MEDS ORDERED: METR500T14 PO (15:26)
[2021-07-26] MEDS ORDERED: BUDE0.5S IN (15:26)
[2021-07-26] MEDS ORDERED: DOCU-94 PO (15:26)
[2021-07-26] MEDS ORDERED: CEPH-322 PO (15:26)
[2021-07-26] MEDS ORDERED: PPN PER PHARMACY IV NR ×7 (20:00)
== END 2021-07-26 15:25 | disposition hospice, home (50) | DRG 853 ==
LOC: ER 14:11 → TELE 20:58 → TELE-E-ADS 07-14 05:05
PROVIDERS: ADMIT Nurse Practitioner; ATTEND Internal Medicine Nephrology
PROC: XW033E5 Introduction of Remdesivir Anti-infective into Peripheral Vein, Percutaneous Approach, New Technology Group 5 (ICD-10-PCS; 2021-07-14)
PROC: 02CQ3ZZ Extirpation of Matter from Right Pulmonary Artery, Percutaneous Approach (ICD-10-PCS; principal; 2021-07-18)
PROC: B31TYZZ Fluoroscopy of Left Pulmonary Artery using Other Contrast (ICD-10-PCS; 2021-07-18)
PROC: B31SYZZ Fluoroscopy of Right Pulmonary Artery using Other Contrast (ICD-10-PCS; 2021-07-18)
PROC: 05HB33Z Insertion of Infusion Device into Right Basilic Vein, Percutaneous Approach (ICD-10-PCS; 2021-07-18)
PROC: B54MZZA Ultrasonography of Right Upper Extremity Veins, Guidance (ICD-10-PCS; 2021-07-18)
DX: A41.89 Other specified sepsis (principal); U07.1 COVID-19; J12.82 Pneumonia due to coronavirus disease 2019; N17.0 Acute kidney failure with tubular necrosis; G93.41 Metabolic encephalopathy; I50.43 Acute on chronic combined systolic (congestive) and diastolic (congestive) heart failure; I26.99 Other pulmonary embolism without acute cor pulmonale; I21.A1 Myocardial infarction type 2; J96.01 Acute respiratory failure with hypoxia; E44.0 Moderate protein-calorie malnutrition; G40.209 Localization-related (focal) (partial) symptomatic epilepsy and epileptic syndromes with complex partial seizures, not intractable, without status epilepticus; E87.0 Hyperosmolality and hypernatremia; I82.413 Acute embolism and thrombosis of femoral vein, bilateral; Z66 Do not resuscitate; I11.0 Hypertensive heart disease with heart failure; D64.9 Anemia, unspecified; E55.9 Vitamin D deficiency, unspecified; N28.89 Other specified disorders of kidney and ureter; K86.9 Disease of pancreas, unspecified; D89.839 Cytokine release syndrome, grade unspecified; Z51.5 Encounter for palliative care; Z79.01 Long term (current) use of anticoagulants; Z79.899 Other long term (current) drug therapy; Z82.49 Family history of ischemic heart disease and other diseases of the circulatory system; Z86.718 Personal history of other venous thrombosis and embolism; Z90.710 Acquired absence of both cervix and uterus; Z68.31 Body mass index [BMI] 31.0-31.9, adult; Z23 Encounter for immunization
CPT/HCPCS: 36415; 36600; 37184; 70450; 71045; 71250; 71275; 74176; 74178; 75743; 76000; 76942; 80048; 80053; 80061; 81001; 82040; 82270; 82306; 82378; 82550; 82570; 82728; 82805; 82962; 83605; 83615; 83735; 83880; 84100; 84156; 84260; 84300; 84443; 84478; 84484; 84550; 85007; 85025; 85027; 85379; 85610; 85730; 86141; 86300; 86301; 86304; 86850; 86900; 86901; 87040; 87086; 87426; 93306; 93970; 94640; 95819; 96361; 96365; 96368; 96375; 97110; 97530; 99152; 99153; C9113; G0378; J0696; J1100; J1815; J2185; J2250; Q9967